=== PATIENT | male | born 1960 ===

== ENCOUNTER → 2023-08-10 | Outpatient (CLI) | payer BC ==
[2023-08-10 14:59] LABS: BASOPHILS ABSOLUTE AUTO 0.06 K/mm3 (0.00-0.23); BASOPHILS PERCENT AUTO 1 % (0-2); EOSINOPHILS ABSOLUTE AUTO 0.14 K/mm3 (0.00-0.68); EOSINOPHILS PERCENT AUTO 2 % (0-6); Hematocrit 44.1 % (37.0-53.0); Hemoglobin 14.8 g/dL (13.5-17.5); IMMATURE GRAN ABSOLUTE AUTO 0.01 K/mm3 (0.00-0.10); IMMATURE GRAN PERCENT AUTO 0 % (0-1); LYMPHOCYTES ABSOLUTE AUTO 1.97 K/mm3 (0.84-5.20); LYMPHOCYTES PERCENT AUTO 24 % (21-46); MONOCYTES ABSOLUTE AUTO 0.57 K/mm3 (0.16-1.47); MONOCYTES PERCENT AUTO 7 % (4-13); Mean Corpuscular HGB 30.7 pg (26.0-34.0); Mean Corpuscular HGB Conc 33.6 g/dL (31.5-36.5); Mean Corpuscular Volume 92 fL (80-100); Mean Platelet Volume 12.7 fL (9.1-12.4); NEUTROPHILS ABSOLUTE AUTO 5.35 K/mm3 (1.96-9.15); NEUTROPHILS PERCENT AUTO 66 % (41-73); Platelet Count 174 K/mm3 (150-400); RDW Coefficient Variation 13.1 % (11.7-14.2); RDW Standard Deviation 43.8 fL (35.1-46.3); Red Blood Cell Count 4.82 M/mm3 (4.30-5.90)
[2023-08-10 15:25] LABS: CHOL/HDL RATIO 3.5; Cholesterol 151 mg/dL (50-200); HDL Cholesterol 43 mg/dL (>39); LDL/HDL RATIO 1.8; Low Density Lipoprotein Chol 77 mg/dL (0-110); Prostate Specific Antigen 0.318 ng/mL (0.000-4.000); Triglycerides 155 mg/dL (30-160); Very Low Density Lipoprot Chol 31 mg/dL (6-32)
[2023-08-12 13:00] LABS: HIV 1,2 COMBO ANTIGEN/ANTIBODY Negative (Negative)
[2023-08-12 13:26] LABS: HEPATITIS C AB CIA INTERP High Pos (Negative); HEPATITIS C ANTIBODY CIA INDEX >11.00 IV
[2023-08-12 20:08] LABS: A/G RATIO 1.6 (1.2-2.2); BILIRUBIN, TOTAL 0.3 mg/dL (0.0-1.2); CALCIUM, SERUM 8.2 mg/dL (8.6-10.2); CREATININE, SERUM 0.79 mg/dL (0.76-1.27); GLOBULIN, TOTAL 2.3 g/dL (1.5-4.5)
[2023-08-13 01:39] LABS: HCV QNT BY NAAT (IU/ML) Not Detected; HCV QNT BY NAAT (LOG IU/ML) Not Detected; HCV QNT BY NAAT INTERP Not Detected (Not Detected)
== END ==
LOC: LAB SHORT 13:05 → LAB 13:05
PROVIDERS: General Practice
DX: Z00.00 Encounter for general adult medical examination without abnormal findings (principal); H81.12 Benign paroxysmal vertigo, left ear; I21.9 Acute myocardial infarction, unspecified; Z11.59 Encounter for screening for other viral diseases; Z13.6 Encounter for screening for cardiovascular disorders
CPT/HCPCS: 80053; 80061; 83036; 85025; 86803; 87389; 87522; G0103